=== PATIENT | male | born 1955 | race American Indian/Alaskan Native ===

== ENCOUNTER 2017-12-26 16:45 | Emergency (ER) | payer BC ==
--- NOTE | 2017-12-26 19:18 | XRay Report ---
FINAL REPORT EXAM: XR FINGER(S) 2+V RT HISTORY: pain and deformity TECHNIQUE: AP view of right hand and 2 views of right thumb. PRIORS: None. FINDINGS: Soft tissue thickening, edema and bandaging artifact noted about the thumb distal phalanx. No apparent fracture or dislocation. Mild degenerative change in the thumb MCP joint. Remainder of osseous and soft tissue structures grossly unremarkable. IMPRESSION: 1. No acute osseous abnormality. 2. Soft tissue posttraumatic change.
[2017-12-26] MEDS ORDERED: NACL 0.9% IR ONE (20:24)
[2017-12-26] MEDS ORDERED: PERCOCET 5/325 PO ONE (20:26)
--- NOTE | 2017-12-26 21:35 | Emergency Department Report ---
- General Chief Complaint: Wound/Laceration Stated Complaint: CUT TIP OF RT THUMP Time Seen by Provider: 12/26/17 21:30 Source: patient Mode of arrival: Ambulatory Limitations: No Limitations - History of Present Illness Initial Comments: 62-year-old -[place] male with a past medical history lymphoma comes in reports that cut his right thumb tip with a table saw approximately 45 minutes prior to arrival. Patient put his pains went out of 10. Patient reports she is up-to-date in his tetanus was given to him earlier this year. Patient reports taking no medications at this time. -: This evening Extremity Location: Right: Hand Place: home Patient Tetanus UTD: Yes Context: accidental Associated Symptoms: pain - Related Data Previous Rx's Medication Instructions Recorded Last Taken Type Cephalexin [Keflex] 500 mg PO BID #20 capsule 12/26/17 Unknown Rx Ibuprofen [Motrin 600 MG tab] 600 mg PO Q8H PRN #30 tablet 12/26/17 Unknown Rx Allergies Allergy/AdvReac Type Severity Reaction Status Date / Time No Known Allergies Allergy Verified 12/26/17 16:59 ED Review of Systems ROS: Stated complaint: CUT TIP OF RT THUMP Other details as noted in HPI Comment: All other systems reviewed and negative Skin: other (cut to right thumb) ED Past Medical Hx - Past Medical History Previous Medical History?: Yes Additional medical history: lymphoma - Surgical History Past Surgical History?: No - Social History Smoking Status: Never Smoker Substance Use Type: None - Medications Home Medications: Home Medications Medication Instructions Recorded Confirmed Last Taken Type Cephalexin [Keflex] 500 mg PO BID #20 capsule 12/26/17 Unknown Rx Ibuprofen [Motrin 600 MG tab] 600 mg PO Q8H PRN #30 tablet 12/26/17 Unknown Rx ED Physical Exam - General Limitations: No Limitations General appearance: alert, in no apparent distress - Head Head exam: Present: atraumatic, normocephalic - Eye Eye exam: Present: EOMI - ENT ENT exam: Present: mucous membranes moist - Neurological Exam Neurological exam: Present: alert, oriented X3 - Psychiatric Psychiatric exam: Present: normal affect, normal mood - Expanded Skin Exam Expanded Type of lesion: Present: laceration Distribution of rash: RUE (right thumb) Description of rash: Present: tenderness, other (bleeding controlled tenderness to palpate flap.) ED Course Vital Signs 12/26/17 12/26/17 16:51 20:33 Temperature 98.2 F Pulse Rate 72 Respiratory 20 18 Rate Blood Pressure 140/76 O2 Sat by Pulse 98 Oximetry - Laceration /Wound Repair Right Finger Wound Location: upper extremity Wound Length (cm): 2 Wound's Depth, Shape: superficial ( right thumb) Wound Explored: no foreign body removed Irrigated w/ Saline (ccs): 250 Betadine Prep?: Yes Anesthesia: 1% Lidocaine Volume Anesthetic (ccs): 4 Wound Debrided: minimal Wound Repaired With: sutures Suture Size/Type: 5:0 Number of Sutures: 6 Layer Closure?: No Sterile Dressing Applied?: Yes Progress: Patient tolerated procedure well ED Medical Decision Making - Radiology Data Radiology results: report reviewed FINAL REPORT EXAM: XR FINGER(S) 2+V RT HISTORY: pain and deformity TECHNIQUE: AP view of right hand and 2 views of right thumb. PRIORS: None. FINDINGS: Soft tissue thickening, edema and bandaging artifact noted about the thumb distal phalanx. No apparent fracture or dislocation. Mild degenerative change in the thumb MCP joint. Remainder of osseous and soft tissue structures grossly unremarkable. IMPRESSION: 1. No acute osseous abnormality. 2. Soft tissue posttraumatic change. Transcribed By: [facility] Dictated By: BING JONES MD Electronically Authenticated By: BING JONES MD Signed Date/Time: 12/26/171916 DD/ 16 TD/TT: 12/26/171916 - Medical Decision Making Patient has been evaluated by this provider fast track. Percocet given for pain management. Suture repair of right thumb Patient be discharged on ibuprofen and Keflex. Discussed the patient to return back in 7-10 days for suture removal. Discussed the patient to return back sooner if there is any signs of infection such as increased swelling and increased pain redness or purulent discharge. Patient verbalized understanding Critical care attestation.: If time is entered above; I have spent that time in minutes in the direct care of this critically ill patient, excluding procedure time. ED Disposition Clinical Impression: Laceration of right thumb with damage to nail Qualifiers: Encounter type: initial encounter Foreign body presence: without foreign body Qualified Code(s): S61.111A - Laceration without foreign body of right thumb with damage to nail, initial encounter Disposition: DC-01 TO HOME OR SELFCARE Is pt being admited?: No Does the pt Need Aspirin: No Condition: Stable Instructions: Suture Care (ED), Laceration (ED) Additional Instructions: Please complete antibiotics as prescribed. Pain medication as needed. Please return back to the emergency room in 7-10 days for suture removal. He is return sooner if there is any signs of infection she's increased swelling. With discharged redness. Prescriptions: Cephalexin [Keflex] 500 mg PO BID #20 capsule Ibuprofen [Motrin 600 MG tab] 600 mg PO Q8H PRN #30 tablet PRN Reason: Pain Referrals: PRIMARY CARE, [Primary Care Provider] - 3-5 Days
[2017-12-26 21:52] VITALS: BP 150/90
== END 2017-12-26 21:51 | disposition home or self-care (01) ==
LOC: ED 16:45
DX: S61.111A Laceration without foreign body of right thumb with damage to nail, initial encounter (principal); W45.8XXA Other foreign body or object entering through skin, initial encounter; Y93.89 Activity, other specified; Y92.89 Other specified places as the place of occurrence of the external cause; Y99.8 Other external cause status; Z85.72 Personal history of non-Hodgkin lymphomas; Z79.899 Other long term (current) drug therapy